=== PATIENT | male | born 2000 | race African-American/Black ===

== ENCOUNTER 2024-06-21 11:47 | Emergency (ER) | payer OTHER ==
[~2024-06-21] VITALS: Ht 172.7 cm; Wt 65.1 kg
[2024-06-21] MEDS ORDERED: IBUP1TAB7 PO (11:56)
[2024-06-21 15:24] VITALS: BP 100/59; TEMP 99.2; O2SAT 100
== END 2024-06-21 15:34 | disposition home or self-care (01) ==
LOC: M ED 11:47
DX: M54.42 Lumbago with sciatica, left side (principal); Z88.3 Allergy status to other anti-infective agents; Z91.013 Allergy to seafood

== ENCOUNTER 2024-12-03 11:13 | Emergency (ER) | payer OTHER ==
[~2024-12-03] VITALS: Ht 170.2 cm; Wt 72.7 kg
[~2024-12-03 11:13] MED LIST: IBUP1TAB7 PO
[2024-12-03] MEDS ORDERED: METH-1165 PO (19:19)
[2024-12-03] MEDS ORDERED: MEDR4PAK PO (19:19)
[2024-12-03 19:27] VITALS: BP 131/70; TEMP 97.6; O2SAT 100
[2024-12-03] MEDS: NAPROXEN 250 MG TAB PO ONE (19:27)
== END 2024-12-03 19:36 | disposition home or self-care (01) ==
LOC: M ED 11:13
DX: M51.372 Other intervertebral disc degeneration, lumbosacral region with discogenic back pain and lower extremity pain (principal); Z88.3 Allergy status to other anti-infective agents; Z91.013 Allergy to seafood

== ENCOUNTER 2024-12-09 14:34 | Emergency (ER) | payer OTHER ==
[~2024-12-09] VITALS: Ht 170.2 cm; Wt 70.9 kg
[~2024-12-09 14:34] MED LIST changes: +MEDR4PAK PO; +METH-1165 PO
[2024-12-09 15:14] LABS: BASO # 0.1 10^3/uL (0.0-0.2); BASO % 0.7 % (0.0-1.0); EOS # 0.1 10^3/uL (0.0-0.5); EOS % 1.4 % (0.0-3.0); LYMPH # 2.7 10^3/uL (1.5-5.0); LYMPH % 38.5 % (24.0-44.0); MONO # 0.7 10^3/uL (0.0-0.8); MONO % 9.7 % (2.0-8.0); NEUTROPHILS # 3.5 10^3/uL (1.5-8.5); NEUTROPHILS % 49.6 % (36.0-66.0); PLATELET COUNT, AUTOMATED 314 10^3/uL (150-450)
[2024-12-09 15:46] LABS: ALT/SGPT 15.0 U/L (7.0-40); AST/SGOT 23.0 U/L (<34)
[2024-12-09] MEDS: PANTOPRAZOLE 40MG VIAL IV ONE (16:48)
[2024-12-09] MEDS: ONDANSETRON 4MG/2ML VIAL IV ONE (16:48)
[2024-12-09 16:49] LABS: KETONE, URINE AUTO RFX NEGATIVE (NEGATIVE); LEUKOCYTE ESTERASE UR AUTO RFX NEGATIVE (NEGATIVE); MUCUS, URINE RFX SMALL (NEGATIVE); NITRITE, URINE AUTO RFX NEGATIVE (NEGATIVE); RBC, URINE AUTO RFX 0 /HPF (0-3); SQUAM EPITHELIAL CELL UR AURFX 0 /HPF (0-6); WBC, URINE AUTO RFX 0 /HPF (0-3)
[2024-12-09] MEDS: LIDOCAINE VISCOUS 2% SOLN 15 ML UDC PO ONE (18:40)
[2024-12-09] MEDS: MAALOX 30 ML SUSP *UDC PO ONE (18:40)
[2024-12-09] MEDS ORDERED: OMEP-173 PO (19:55)
[2024-12-09 20:00] VITALS: BP 114/55; TEMP 97.3; O2SAT 99
== END 2024-12-09 20:04 | disposition home or self-care (01) ==
LOC: M ED 14:34
DX: R10.13 Epigastric pain (principal); K21.9 Gastro-esophageal reflux disease without esophagitis; Z88.3 Allergy status to other anti-infective agents; Z91.013 Allergy to seafood
CPT/HCPCS: 80047; 80076; 81001; 83690; 85025; 96374; 96375; 99284; J2405; J2470